=== PATIENT | female | born 1990 | race Caucasian/White ===

== ENCOUNTER 2017-02-04 00:39 | Emergency (ER) | payer MEDICAID ==
[2017-02-04 00:40] VITALS: BMI 41.3
[2017-02-04] MEDS ORDERED: Sodium Chloride 0.9% 1,000 ML IV ONE (01:50)
[2017-02-04] MEDS ORDERED: Iohexol 240 (50 ml) PO ONE (01:52)
[2017-02-04] MEDS ORDERED: Sodium Chloride 0.9% 1,000 ML ONE (02:06)
[2017-02-04] MEDS ORDERED: Iohexol 240 (50 ml) ONE (02:06)
[2017-02-04 02:07] LABS: RBC URINE 7 /hpf (0-3); URINE BILIRUBIN NEGATIVE (NEGATIVE); URINE BLOOD 1+ (NEGATIVE); URINE COLOR Yellow (YELLOW); URINE GLUCOSE (UA) NORMAL (Normal); URINE KETONE NEGATIVE (NEGATIVE); URINE LEUKOCYTE ESTERASE TRACE Leu/uL (Negative); URINE PROTEIN NEGATIVE (NEGATIVE); URINE UROBILINOGEN NORMAL mg/dL (0.2-1.0); WBC URINE 3 /hpf (0-5)
[2017-02-04 02:14] LABS: BASO # 0.1 K/uL (0.0-0.2); BASO % 0.7 % (0.0-2.0); EOS # 0.1 K/uL (0.0-0.7); EOS % 0.8 % (0.0-4.0); HEMATOCRIT 36.1 % (34.0-47.0); LYMPH # 1.9 K/uL (1.0-4.3); LYMPH % 19.6 % (20.0-40.0); MEAN CELL VOLUME 76.3 fL (81.0-99.0); MEAN CORPUSCULAR HEMOGLOBIN 24.3 pg (27.0-31.0); MEAN CORPUSCULAR HGB CONC 31.9 g/dL (33.0-37.0); MEAN PLATELET VOLUME 8.6 fL (7.2-11.7); MONO # 0.4 K/uL (0.0-0.8); MONO % 4.3 % (0.0-10.0); RED CELL DISTRIBUTION WIDTH 16.9 % (11.5-14.5); WHITE BLOOD COUNT 9.9 K/uL (4.8-10.8)
[2017-02-04 02:22] LABS: CHLORIDE 98 mmol/L (98-107)
[2017-02-04 02:23] LABS: SODIUM 135 mmol/L (132-148)
[2017-02-04 02:25] LABS: ALB/GLOB RATIO 1.2 (1.0-2.1); BILIRUBIN,TOTAL 0.4 mg/dL (0.2-1.3); CARBON DIOXIDE 28 mmol/L (22-30); GFR AFRICAN-AMERICAN > 60; TOTAL PROTEIN 7.7 g/dL (6.3-8.3)
[2017-02-04 02:26] LABS: ALKALINE PHOSPHATASE 49 U/L (38-126); ALT/SGPT 19 U/L (9-52); AST/SGOT 17 U/L (14-36); BLOOD UREA NITROGEN 10 mg/dL (7-17); CALCIUM 8.5 mg/dl (8.6-10.4); GLUCOSE,RANDOM 137 mg/dL (65-105)
--- NOTE | 2017-02-04 02:53 | C.PDOC ---
History Of Present Illness A 26 y/o female with a Hx of dysuria, c/o right lower quadrant abdominal pain that began tonight. Pt denies fever, chills, nausea, vomiting, diarrhea, vaginal bleeding, discharge, dysuria, hematuria, or any other complaints. Pt's LMP was January 10. Time Seen by Provider: 02/04/17 00:51 Chief Complaint (Nursing): Abdominal Pain History Per: Patient History/Exam Limitations: no limitations Onset/Duration Of Symptoms: Hrs Current Symptoms Are (Timing): Still Present Severity: Mild Location Of Pain/Discomfort: RLQ Recent travel outside of the [place]: No Additional History Per: Patient Abnormal Vaginal Bleeding: No Past Medical History Reviewed: Historical Data, Nursing Documentation, Vital Signs Vital Signs: Last Vital Signs Temp 99 F 02/04/17 00:46 Pulse 89 02/04/17 00:46 Resp 17 02/04/17 00:46 BP 152/96 H 02/04/17 00:46 Pulse Ox 99 02/04/17 02:54 - Medical History PMH: Gastritis, HTN (during only) - [employer] Procedures ADENOIDECTOMY (03/01/14) MONITORING NOS (01/09/15) REPAIR OB LACERATION NEC (01/09/15) Family History: States: Unknown Family Hx - Social History Hx Tobacco Use: No Hx Alcohol Use: No Hx Substance Use: No - Immunization History Hx Tetanus Toxoid Vaccination: No Hx Influenza Vaccination: No Hx Pneumococcal Vaccination: No Review Of Systems Except As Marked, All Systems Reviewed And Found Negative. Constitutional: Negative for: Fever, Chills Gastrointestinal: Positive for: Abdominal Pain (RLQ ). Negative for: Nausea, Vomiting, Diarrhea Genitourinary: Negative for: Dysuria, Hematuria, Vaginal Discharge, Vaginal Bleeding Physical Exam - Physical Exam Appears: Non-toxic, No Acute Distress Skin: Warm, Dry Head: Atraumatic, Normacephalic Eye(s): bilateral: Normal Inspection Chest: Symmetrical Cardiovascular: Rhythm Regular, No Murmur Respiratory: Normal Breath Sounds, No Accessory Muscle Use, No Rales, No Rhonchi , No Wheezing Gastrointestinal/Abdominal: Soft, Tenderness (RLQ tenderness), No Guarding, No Rebound Neurological/Psych: Oriented x3, Normal Speech, Normal Cognition, Other (No focal deficit) Gait: Steady ED Course And Treatment - Laboratory Results Result Diagrams: 02/04/17 02:11 02/04/17 02:11 O2 Sat by Pulse Oximetry: 99 (RA) Pulse Ox Interpretation: Normal Medical Decision Making Medical Decision Making: Impression: A 26 y/o female c/o right lower quadrant abdominal pain that began tonight. Plans: CT Abd/Pel Omnipaque Morphine IV fluids Reassess Disposition - Disposition Referrals: Wolf Braden, DNP, [employer] [Primary Care Provider] - Disposition: HOME/ ROUTINE Disposition Time: 05:12 Condition: STABLE Prescriptions: Docusate Sodium [Colace] 100 mg PO BID #20 capsule Instructions: Abdominal Pain (ED), Constipation (GEN), High Fiber Diet (ED) Forms: Gen Discharge Inst Kyrgyz Print Language: SWISS - POA Present On Arrival: None - Clinical Impression Clinical Impression: Abdominal pain, Constipation - Scribe Statement The provider has reviewed the documentation as recorded by the Scribe Mabel cherry All medical record entries made by the Scribe were at my direction and personally dictated by me. I have reviewed the chart and agree that the record accurately reflects my personal performance of the history, physical exam, medical decision making, and the department course for this patient. I have also personally directed, reviewed, and agree with the discharge instructions and disposition.
[2017-02-04] MEDS ORDERED: Iohexol 350mg/ml 100 ML ONE (03:30)
--- NOTE | 2017-02-04 05:05 | CT ---
EXAM: CT Abdomen and Pelvis With Intravenous Contrast CLINICAL HISTORY: 26 years old, female; Pain; Abdominal pain; Additional info: Rlq abd pain TECHNIQUE: Axial computed tomography images of the abdomen and pelvis with intravenous contrast. This CT exam was performed using one or more of the following dose reduction techniques: automated exposure control, adjustment of the mA and/or kV according to patient size, and/or use of iterative reconstruction technique. Coronal and sagittal reformatted images were created and reviewed. CONTRAST: 100 mL of [id number] administered intravenously. EXAM DATE/TIME: 02/04/2017 1:51 AM COMPARISON: CT - ABD PELVIS PO IV CON 01/31/2014 5:33:08 PM FINDINGS: Umbilical piercing. The liver is normal. The spleen is normal. The pancreas is normal. No gallstones. No hydronephrosis or perinephric stranding. The right colon is distended with stool consistent with constipation. The appendix is not well seen however there are no secondary signs of appendicitis. I suspect it is being compressed by the stool-filled cecum. The patient was scanned prior to contrast reaching this region. Symmetric appearing ovaries containing follicles. Slight indistinctness of the anterior urinary bladder wall of the partially due to motion. Correlation with urinalysis if clinically indicated. IMPRESSION: Right-sided constipation. The appendix is not well seen. No secondary signs of appendicitis. Motion through the urinary bladder as discussed above.
[2017-02-04 05:25] VITALS: BP 141/86; PULSE 78; RESP 20; TEMP 98.4; O2SAT 98
== END 2017-02-04 05:28 | disposition home or self-care (01) ==
LOC: SUPCPDRO 00:39 → C.ER 00:39
DX: K59.00 Constipation, unspecified (principal); R10.31 Right lower quadrant pain
CPT/HCPCS: 74177; 80053; 81001; 83690; 84703; 85025; 87086; 96374; 99284; J2270; J7040; Q9966; Q9967